=== PATIENT | male | born 1960 | race Caucasian/White ===

== ENCOUNTER 2023-05-24 08:56 | Day surgery (SDC) | payer OTHER ==
[~2023-05-24 08:56] MED LIST: Lactated Ringers 1,000 ML IV SCH; Sodium Chloride 0.9% 10 ML Syringe FLUSH PRN; Sodium Chloride 0.9% 10 ML Syringe FLUSH SCH
[2023-05-24] MEDS ORDERED: Lidocaine 1% 2 ML ONE (09:47)
[2023-05-24] MEDS ORDERED: fentaNYL 100 MCG/2 ML SDV ONE (09:47)
[2023-05-24] MEDS ORDERED: Propofol 200 MG/20 ML SDV ONE (09:47)
[2023-05-24] MEDS ORDERED: Lidocaine 1% 4 ML ONE (09:48)
[2023-05-24] MEDS ORDERED: Lidocaine 1% 20 ML MDV ONE (09:57)
== END 2023-05-24 12:20 | disposition home or self-care (01) ==
LOC: JD.SDS 08:56
PROVIDERS: ATTEND Surgery
DX: Z12.11 Encounter for screening for malignant neoplasm of colon (principal); D18.01 Hemangioma of skin and subcutaneous tissue; K57.30 Diverticulosis of large intestine without perforation or abscess without bleeding; K63.89 Other specified diseases of intestine; K64.8 Other hemorrhoids; E78.00 Pure hypercholesterolemia, unspecified; G47.30 Sleep apnea, unspecified; Z80.0 Family history of malignant neoplasm of digestive organs
CPT/HCPCS: 11401; 12031; 45378; J2704; J3010; J7120; 00813; J3490

== ENCOUNTER 2024-01-02 06:30 | Day surgery (SDC) | payer OTHER ==
[2024-01-02] MEDS ORDERED: fentaNYL 100 MCG/2 ML SDV IVPUSH PRN (07:12)
[2024-01-02] MEDS ORDERED: Ondansetron 4 MG/2 ML SDV IVPUSH PRN (07:12)
[2024-01-02] MEDS ORDERED: HYDROmorphone 0.5 MG/0.5 ML Syringe IVPUSH PRN (07:12)
[2024-01-02] MEDS: Acetaminophen 325 MG Tab PO SCH (07:13)
[2024-01-02] MEDS: oxyCODONE ER 10 MG TAB.ER PO SCH (07:14)
[2024-01-02] MEDS: Pregabalin 25 MG Cap PO SCH (07:14)
[2024-01-02] MEDS ORDERED: Propofol 200 MG/20 ML SDV ONE (07:15)
[2024-01-02] MEDS ORDERED: Midazolam 1 MG/ML 2 ML SDV ONE (07:16)
[2024-01-02] MEDS ORDERED: Phenylephrine 1% 10 MG/ML SDV ONE (07:17)
[2024-01-02] MEDS ORDERED: ceFAZolin 2 GM Vial ONE (07:17)
[2024-01-02] MEDS ORDERED: Ondansetron 4 MG/2 ML SDV ONE (07:18)
[2024-01-02] MEDS ORDERED: Dexamethasone 4 MG/ML 5 ML MDV ONE (07:18)
[2024-01-02] MEDS ORDERED: Sodium Chloride 0.9% 100 ML ONE (07:20)
[2024-01-02] MEDS ORDERED: Lactated Ringers 1,000 ML IV ONE ×2 (08:00→09:00)
[2024-01-02] MEDS: Morphine 8 MG, EPINEPHrine 0.3 MG, Cefuroxime 750 MG, Ketorolac 30 MG, Sodium Chloride ... PRN (09:10)
[2024-01-02] MEDS: Vancomycin 1 GM SDV ONE (09:17)
[2024-01-02] MEDS: Tranexamic Acid 1,000 MG/10 ML Vial ONE (09:17)
[2024-01-02] MEDS: Bupivacaine 0.25% 10 ML SDV ONE (09:30)
[2024-01-02] MEDS: Triamcinolone Acetonide 40 MG/ML 1 ML SDV ONE (09:30)
[2024-01-02] MEDS ORDERED: Ropivacaine 0.5% 5 MG/ML 30 ML SDV ONE (09:42)
[2024-01-02] MEDS: oxyCODONE 5 MG Tab PO PRN (11:48)
[2024-01-02] MEDS ORDERED: ePHEDrine 50 MG/ML SDV ONE (13:04)
== END 2024-01-02 13:20 | disposition home or self-care (01) ==
LOC: JD.SDS 06:30
PROVIDERS: ATTEND Orthopaedic Surgery
DX: M17.0 Bilateral primary osteoarthritis of knee (principal); E78.00 Pure hypercholesterolemia, unspecified; R03.0 Elevated blood-pressure reading, without diagnosis of hypertension; Z87.891 Personal history of nicotine dependence; Z79.82 Long term (current) use of aspirin; Z79.899 Other long term (current) drug therapy
CPT/HCPCS: 0055T; 20610; 27447; 73560; 97116; 97161; A9270; C1713; C1776; J0171; J0690; J0697; J1100; J1885; J2250; J2270; J2371; J2405; J2704; J2795; J3301; J3370; J3490; J7030; J7120; 01402; 64447

== ENCOUNTER 2024-08-13 06:00 | Day surgery (SDC) | payer OTHER ==
[~2024-08-13 06:00] MED LIST changes: -Lactated Ringers 1,000 ML IV SCH
[2024-08-13] MEDS ORDERED: Midazolam 1 MG/ML 2 ML SDV ONE (06:11)
[2024-08-13] MEDS ORDERED: Ondansetron 4 MG/2 ML SDV ONE (06:11)
[2024-08-13] MEDS ORDERED: Ketorolac 30 MG/ML SDV ONE (06:11)
[2024-08-13] MEDS ORDERED: Dexamethasone 4 MG/ML 5 ML MDV ONE (06:11)
[2024-08-13] MEDS ORDERED: Propofol 200 MG/20 ML SDV ONE ×3 (06:11→08:20)
[2024-08-13] MEDS ORDERED: Ropivacaine 0.5% 5 MG/ML 30 ML SDV ONE (06:11)
[2024-08-13] MEDS ORDERED: Lactated Ringers 1,000 ML ONE (06:11)
[2024-08-13] MEDS ORDERED: ceFAZolin 2 GM Vial ONE (06:11)
[2024-08-13] MEDS: Lactated Ringers 1,000 ML IV SCH (06:30)
[2024-08-13] MEDS ORDERED: HYDROmorphone 0.5 MG/0.5 ML Syringe IVPUSH PRN (06:31)
[2024-08-13] MEDS ORDERED: Ondansetron 4 MG/2 ML SDV IVPUSH PRN (06:31)
[2024-08-13] MEDS ORDERED: fentaNYL 100 MCG/2 ML SDV IVPUSH PRN (06:31)
[2024-08-13] MEDS: Acetaminophen 325 MG Tab PO SCH (06:40)
[2024-08-13] MEDS: Pregabalin 25 MG Cap PO SCH (06:40)
[2024-08-13] MEDS: oxyCODONE ER 10 MG TAB.ER PO SCH (06:41)
[2024-08-13 06:45] LABS: PROTHROMBIN TIME 10.6 SECONDS (9.7-12.0)
[2024-08-13] MEDS ORDERED: ePHEDrine 50 MG/ML SDV ONE (07:27)
[2024-08-13] MEDS ORDERED: Lidocaine 1% PF 2 ML SDV ONE ×2 (07:30)
[2024-08-13] MEDS ORDERED: EPINEPHrine 1 MG/ML SDV ONE (07:46)
[2024-08-13] MEDS: Tranexamic Acid 1,000 MG/10 ML Vial ONE (08:50)
[2024-08-13] MEDS: Morphine 8 MG, EPINEPHrine 0.3 MG, Cefuroxime 750 MG, Ketorolac 30 MG, Sodium Chloride ... PRN (08:50)
[2024-08-13] MEDS: Vancomycin 1 GM SDV ONE (08:50)
[2024-08-13] MEDS: oxyCODONE 5 MG Tab PO PRN (12:37)
== END 2024-08-13 13:00 | disposition home or self-care (01) ==
LOC: JD.SDS 06:00
PROVIDERS: ATTEND Orthopaedic Surgery
DX: M17.12 Unilateral primary osteoarthritis, left knee (principal); G47.33 Obstructive sleep apnea (adult) (pediatric); D50.9 Iron deficiency anemia, unspecified; E78.00 Pure hypercholesterolemia, unspecified; Z87.891 Personal history of nicotine dependence; Z79.82 Long term (current) use of aspirin; Z79.899 Other long term (current) drug therapy
CPT/HCPCS: 0055T; 27447; 36415; 64447; 73560; 85610; 85730; 97116; 97161; A9270; J0171; J0690; J0697; J1100; J1885; J2250; J2270; J2405; J2704; J2795; J7120; C1713; C1776; J2272; J3490

== ENCOUNTER 2025-08-07 06:45 | Day surgery (SDC) | payer OTHER ==
[~2025-08-07 06:45] MED LIST changes: +Dexamethasone 4 MG/ML 5 ML MDV ONE; +EPINEPHrine 1 MG/ML SDV ONE; +Ondansetron 4 MG/2 ML SDV ONE; +Propofol 200 MG/20 ML SDV ONE; +Ropivacaine 0.5% 5 MG/ML 30 ML SDV ONE; +dexmedeTOMIDine HCl 200 MCG/2 ML SDV ONE; +propofoL 500 MG/50 ML 50 ML ONE
[2025-08-07] MEDS: Lactated Ringers 1,000 ML IV SCH (07:00)
[2025-08-07] MEDS: oxyCODONE ER 10 MG TAB.ER PO SCH (07:09)
[2025-08-07] MEDS ORDERED: Lidocaine 1% 2 ML ONE (07:43)
[2025-08-07] MEDS ORDERED: fentaNYL 100 MCG/2 ML SDV ONE (07:43)
[2025-08-07] MEDS ORDERED: Midazolam 1 MG/ML 2 ML SDV ONE (07:43)
[2025-08-07] MEDS ORDERED: propofoL 500 MG/50 ML 50 ML ONE (08:53)
[2025-08-07] MEDS ORDERED: Lactated Ringers 1,000 ML ONE (08:57)
[2025-08-07] MEDS ORDERED: Glycopyrrolate 0.2 MG/ML 2 ML SDV ONE (09:15)
== END 2025-08-07 13:45 | disposition home or self-care (01) ==
LOC: JD.SDS 06:45
PROVIDERS: ATTEND Orthopaedic Surgery
DX: M19.011 Primary osteoarthritis, right shoulder (principal); E78.00 Pure hypercholesterolemia, unspecified; G47.33 Obstructive sleep apnea (adult) (pediatric); Z87.891 Personal history of nicotine dependence; Z79.899 Other long term (current) drug therapy
CPT/HCPCS: 23472; 64415; 76000; 97530; A9270; J0169; J0690; J1100; J1596; J2003; J2250; J2405; J2704; J2795; J3010; J3373; J7120; 01638; 97165-GO; C1713; C1769; C1776; J3490

== ENCOUNTER 2025-09-16 10:24 | Day surgery (SDC) | payer OTHER ==
[~2025-09-16 10:24] MED LIST changes: -EPINEPHrine 1 MG/ML SDV ONE; +Midazolam 1 MG/ML 2 ML SDV ONE; -Propofol 200 MG/20 ML SDV ONE; +fentaNYL 100 MCG/2 ML SDV ONE; -propofoL 500 MG/50 ML 50 ML ONE
[2025-09-16] MEDS ORDERED: Lactated Ringers 1,000 ML IV ONE (10:25)
[2025-09-16] MEDS: Lactated Ringers 1,000 ML IV SCH (10:45)
[2025-09-16] MEDS ORDERED: propofoL 1,000 MG/100 ML 100 ML ONE (10:47)
[2025-09-16] MEDS: oxyCODONE ER 10 MG TAB.ER PO SCH (11:12)
[2025-09-16] MEDS ORDERED: ePHEDrine 50 MG/ML SDV ONE (13:06)
[2025-09-16] MEDS ORDERED: Propofol 200 MG/20 ML SDV ONE (13:49)
== END 2025-09-16 15:55 | disposition home or self-care (01) ==
LOC: JD.SDS 10:24
PROVIDERS: ATTEND Orthopaedic Surgery
DX: M19.012 Primary osteoarthritis, left shoulder (principal); M75.102 Unspecified rotator cuff tear or rupture of left shoulder, not specified as traumatic; G47.33 Obstructive sleep apnea (adult) (pediatric); Z79.899 Other long term (current) drug therapy
CPT/HCPCS: 23472; 64415; 76000; 97165; A9270; C1713; C1769; C1776; J0690; J1100; J2250; J2405; J2704; J2795; J3010; J3373; J7120; 01638; J3490